=== PATIENT | male | born 1990 | race African-American/Black ===

== ENCOUNTER 2016-10-27 10:01 | Emergency (ER) | payer MEDICAID ==
[~2016-10-27] VITALS: Ht 175.3 cm; Wt 66.5 kg
[2016-10-27 10:26] VITALS: BP 136/84
[2016-10-27] MEDS ORDERED: ONDANSETRON 4MG ODT PO ONE (11:45)
[2016-10-27] MEDS ORDERED: ACETAMINOPHEN 500MG TABLET PO ONE (11:45)
[2016-10-27 12:36] LABS: HEMATOCRIT. 39.8 % (42.0-52.0); MEAN CORPUSCULAR HEMOGLOBIN 26.1 pg (28.0-32.0); MEAN CORPUSCULAR HGB CONC 32.7 g/dL (31.0-37.0); MEAN CORPUSCULAR VOLUME 79.7 fL (80.0-94.0); MEAN PLATELET VOLUME 9.4 fl (7.4-10.4); PLATELET 157 x1000/uL (130-400); RED BLOOD CELL COUNT 4.99 mill/uL (4.7-6.1); RED CELL DISTRIBUTION WIDTH 14.7 % (11.6-14.6); WHITE BLOOD COUNT 13.4 x1000/uL (4.5-11.0)
[2016-10-27 12:39] LABS: CHLORIDE 101 mEq/L (98-107); INDEX HEMOLYSI 1 (1-3); INDEX ICTERIC 1 (1-4); INDEX LIPEMIC 1 (1-3)
[2016-10-27 12:40] LABS: DIFFERENTIAL COMMENT 1
[2016-10-27 12:47] LABS: ALANINE AMINOTRANSFERASE 17 IU/L (13-61); ALBUMIN 3.7 g/dL (3.4-5.0); ANION GAP 14; CALCIUM 8.2 mg/dL (8.5-10.1); CARBON DIOXIDE 24 mEq/L (21-32); UREA NITROGEN BLOOD 11 mg/dL (7-21); eGFR > 60 mL/min (>60)
[2016-10-27 12:53] LABS: PLATELET ESTIMATE NORMAL
[2016-10-27] MEDS ORDERED: POTASSIUM CHLORIDE 20MEQ TABLET SR PO NR (13:15)
== END 2016-10-27 14:40 | disposition home or self-care (01) ==
LOC: ER 10:47 → EDBD 10:47 → ER 14:40
DX: R51 Headache (principal); F12.10 Cannabis abuse, uncomplicated
CPT/HCPCS: 36415; 80053; 85025; 87804; 99284; Q0162

== ENCOUNTER 2018-07-16 15:25 | Emergency (ER) | payer MEDICAID | END 2018-07-16 17:00 | disposition left against medical advice (07) | LOC: ER 15:25 | DX: R10.9 Unspecified abdominal pain (principal); Z53.21 Procedure and treatment not carried out due to patient leaving prior to being seen by health care provider ==

== ENCOUNTER 2018-07-16 18:12 | Emergency (ER) | payer MEDICAID ==
[~2018-07-16] VITALS: Ht 177.8 cm; Wt 67.2 kg
[2018-07-16] MEDS ORDERED: ACETAMINOPHEN 325MG TABLET PO STA (19:10)
[2018-07-16] MEDS ORDERED: ONDANSETRON 4MG ODT PO STA (19:10)
[2018-07-16] MEDS ORDERED: FAMOTIDINE 20MG TABLET PO ONE (19:15)
[2018-07-16 19:35] LABS: CLARITY URINE CLOUDY (CLEAR); COLOR URINE YELLOW (YELLOW); KETONES URINE TRACE (NEGATIVE); LEUKOCYTE ESTERASE URINE 1+ (NEGATIVE); NITRITE URINE NEGATIVE (NEGATIVE); OCCULT BLOOD URINE NEGATIVE (NEGATIVE); PROTEIN URINE NEGATIVE (NEGATIVE); SPECIFIC GRAVITY URINE 1.028 (1.005-1.030)
[2018-07-16 19:46] LABS: *AMPHETAMINES SCREEN URINE NEGATIVE (NEGATIVE); *BARBITURATES SCREEN URINE NEGATIVE (NEGATIVE); *BENZODIAZEPINES SCREEN URINE NEGATIVE (NEGATIVE); *COCAINE SCREEN URINE NEGATIVE (NEGATIVE); METHADONE URINE SCREEN NEGATIVE (NEGATIVE); OPIATES URINE SCREEN NEGATIVE (NEGATIVE)
[2018-07-16 19:47] LABS: CANNABINOID URINE SCREEN NEGATIVE (NEGATIVE); PHENCYCLIDINE URINE SCREEN NEGATIVE (NEGATIVE)
[2018-07-16 20:20] LABS: BASOPHILS % 0.3 % (0.0-2.0); EOSINOPHILS % 1.4 % (0.0-5.0); HEMATOCRIT. 40.6 % (42.0-52.0); HEMOGLOBIN. 13.2 g/dL (14.0-18.0); LYMPHOCYTES % 25.1 % (20.0-50.0); MEAN CORPUSCULAR HEMOGLOBIN 26.5 pg (28.0-32.0); MEAN CORPUSCULAR VOLUME 81.5 fL (80.0-94.0); MEAN PLATELET VOLUME 9.9 fl (7.4-10.4); MONOCYTES % 7.3 % (2.0-8.0); NEUTROPHILS % 65.9 % (40.0-76.0); PLATELET 223 x1000/uL (130-400); RED BLOOD CELL COUNT 4.99 mill/uL (4.7-6.1); RED CELL DISTRIBUTION WIDTH 14.8 % (11.6-14.6)
[2018-07-16 20:25] LABS: CHLORIDE 106 mEq/L (98-107); INR 1.2
[2018-07-16 21:52] VITALS: BP 127/80
== END 2018-07-16 21:54 | disposition home or self-care (01) ==
LOC: ER 18:12
DX: R10.11 Right upper quadrant pain (principal); R11.2 Nausea with vomiting, unspecified
CPT/HCPCS: 36415; 80053; 80305; 81003; 83690; 85025; 85610; 99284; Q0162